=== PATIENT | female | born 1995 | race African-American/Black ===

== ENCOUNTER 2017-03-25 06:46 | Emergency (ER) | payer SELFPAY ==
[~2017-03-25] VITALS: Ht 149.9 cm; Wt 46.0 kg
[~2017-03-25 06:46] MED LIST: ACET325T14 PO; CALC500T PO; DOCU-30 PO; HYDR50CA PO; IBUP800T PO; MAGN30OR PO; MEDR150D3 IM; MOTRIN; ONDA4SOL2 PO; OXYC-302 PO; PERCOCET; PREN1TAB52 PO; ZOLP-413; ZOLP-413 PO
[2017-03-25 09:26] VITALS: BP 123/89
== END 2017-03-25 09:29 | disposition home or self-care (01) ==
LOC: ED 08:49
DX: R07.89 Other chest pain (principal); G43.909 Migraine, unspecified, not intractable, without status migrainosus

== ENCOUNTER 2017-03-31 15:26 | Inpatient (IN) | payer OTHER ==
[~2017-03-31] VITALS: Ht 152.4 cm; Wt 53.8 kg
[2017-03-31] MEDS ORDERED: SODIUM CHLORIDE FLUSH 10ML SYR IVF ONE (17:00)
[2017-03-31] MEDS ORDERED: LORazepam 2 MG/ML, 1ML IVPush ONE (17:00)
[2017-03-31] MEDS ORDERED: SODIUM CHLORIDE 0.9% 1,000ML IVBOLUS ONE ×2 (17:00→22:30)
[2017-03-31 17:33] LABS: ASPARTATE AMINO TRANSFERASE 9 U/L (15-37); BLOOD UREA NITROGEN 10 mg/dL (7-18)
[2017-03-31] MEDS ORDERED: LORazepam 2 MG/ML, 1ML ONE (17:47)
[2017-03-31] MEDS ORDERED: GADOBUTROL 7.5 MMOL/7.5 ML PFS ONE (20:30)
[2017-03-31] MEDS ORDERED: ACETAMINOPHEN 500 MG TABLET PO ONE (21:30)
[2017-03-31] MEDS ORDERED: ACETAMINOPHEN 500 MG TABLET ONE (21:32)
[2017-03-31] MEDS ORDERED: CEFTRIAXONE PMX 1GM/50ML 50 ML ONE (21:53)
[2017-03-31] MEDS ORDERED: CEFTRIAXONE 1,000 MG in SODIUM CHLORIDE 0.9% 50 ML IVPB ONE (22:00)
[2017-03-31] MEDS ORDERED: CEFTRIAXONE 1,000 MG in SODIUM CHLORIDE 0.9% 50 ML IV SCH (22:30)
[2017-03-31] MEDS ORDERED: SODIUM CHLORIDE 0.9% 1,000 ML IV ONE (22:37)
[2017-03-31] MEDS ORDERED: morphine SULFATE 10 MG/ML, 1ML IVPush PRN (23:00)
[2017-03-31] MEDS ORDERED: ONDANSETRON 2MG/ML, 2ML IVPush PRN (23:00)
[2017-03-31] MEDS ORDERED: SODIUM CHLORIDE FLUSH 10ML SYR IVF PRN (23:00)
[2017-03-31] MEDS ORDERED: LORazepam 2 MG/ML, 1ML IVPush PRN (23:00)
[2017-03-31] MEDS ORDERED: PROMETHAZINE 25 MG/ML, 1ML IM PRN (23:00)
[2017-04-01] VITALS (7 sets, daily range): BP systolic 84–111; BP diastolic 49–74
[2017-04-01] MEDS: SODIUM CHLORIDE 0.9% 1,000 ML IV SCH ×3 (00:13→12:21)
[2017-04-01] MEDS: ENOXAPARIN 40 MG/0.4 ML SQ SCH ×2 (00:13→21:58)
[2017-04-01] MEDS: HYDROcodone/APAP 5/325 TABLET PO PRN ×3 (01:13→09:23)
[2017-04-01] MEDS: NICOTINE 14MG/24 HR PATCH.TD24 TD SCH ×2 (01:14→21:57)
[2017-04-01 05:55] LABS: ASPARTATE AMINO TRANSFERASE 13 U/L (15-37); BLOOD UREA NITROGEN 8 mg/dL (7-18)
[2017-04-01 06:29] LABS: DIFF TOTAL CELLS COUNTED 100 CELL DIFF
[2017-04-01 06:32] LABS: VERIFY COUNTS? YES
[2017-04-01] MEDS: CEFTRIAXONE PMX 1GM/50ML 50 ML IV SCH ×2 (10:01→22:00)
[2017-04-01] MEDS ORDERED: FUROSEMIDE 20 MG/2 ML ONE (13:14)
[2017-04-01] MEDS: KETOROLAC 30 MG/1 ML IVPush PRN ×2 (13:34→21:12)
[2017-04-01] MEDS: ACETAMINOPHEN 325 MG TABLET PO PRN (16:27)
[2017-04-02] MEDS: SODIUM CHLORIDE 0.9% 1,000 ML IV SCH ×4 (00:53→22:41)
[2017-04-02 01:00] VITALS: BP 95/60
[2017-04-02 05:42] LABS: BLOOD UREA NITROGEN 9 mg/dL (7-18)
[2017-04-02 06:57] VITALS: BP 111/68
[2017-04-02] MEDS: ACETAMINOPHEN 325 MG TABLET PO PRN (07:13)
[2017-04-02] MEDS: CEFTRIAXONE PMX 1GM/50ML 50 ML IV SCH ×2 (10:25→22:40)
[2017-04-02 13:21] VITALS: BP 99/68
[2017-04-02] MEDS: KETOROLAC 30 MG/1 ML IVPush PRN (16:39)
[2017-04-02] MEDS ORDERED: GADOBUTROL 10 MMOL/10 ML VIAL ONE (17:26)
[2017-04-02 19:45] VITALS: BP 101/60
[2017-04-02] MEDS: HYDROcodone/APAP 5/325 TABLET PO PRN (21:43)
[2017-04-02] MEDS: NICOTINE 14MG/24 HR PATCH.TD24 TD SCH (22:40)
[2017-04-02] MEDS: ZOLPIDEM 5MG TABLET PO PRN (22:40)
[2017-04-03] MEDS: ENOXAPARIN 40 MG/0.4 ML SQ SCH
[2017-04-03 01:51] VITALS: BP 93/63
[2017-04-03] MEDS: SODIUM CHLORIDE 0.9% 1,000 ML IV SCH ×4 (05:26→22:33)
[2017-04-03] MEDS: KETOROLAC 30 MG/1 ML IVPush PRN ×2 (06:06→16:51)
[2017-04-03 07:05] VITALS: BP 109/71
[2017-04-03] MEDS: CEFTRIAXONE PMX 1GM/50ML 50 ML IV SCH ×2 (10:39→22:33)
[2017-04-03 14:02] VITALS: BP 119/82
[2017-04-03 20:20] VITALS: BP 104/76
[2017-04-03] MEDS: ZOLPIDEM 5MG TABLET PO PRN (22:33)
[2017-04-03] MEDS: HYDROcodone/APAP 5/325 TABLET PO PRN (22:33)
[2017-04-03] MEDS: NICOTINE 14MG/24 HR PATCH.TD24 TD SCH (22:33)
[2017-04-04] MEDS: ENOXAPARIN 40 MG/0.4 ML SQ SCH
[2017-04-04 01:30] VITALS: BP 117/73
[2017-04-04] MEDS: SODIUM CHLORIDE 0.9% 1,000 ML IV SCH ×4 (03:57→23:22)
[2017-04-04 07:37] VITALS: BP 139/97
[2017-04-04] MEDS: KETOROLAC 30 MG/1 ML IVPush PRN (09:39)
[2017-04-04] MEDS: CEFTRIAXONE PMX 1GM/50ML 50 ML IV SCH ×2 (09:46→23:22)
[2017-04-04] MEDS: HYDROcodone/APAP 5/325 TABLET PO PRN ×2 (13:57→22:21)
[2017-04-04 15:02] VITALS: BP 138/93
[2017-04-04 18:35] VITALS: BP 124/90
[2017-04-04] MEDS: NICOTINE 14MG/24 HR PATCH.TD24 TD SCH (23:22)
[2017-04-04] MEDS: ZOLPIDEM 5MG TABLET PO PRN (23:22)
[2017-04-05] MEDS: ENOXAPARIN 40 MG/0.4 ML SQ SCH
[2017-04-05 01:37] VITALS: BP 134/91
[2017-04-05] MEDS: SODIUM CHLORIDE 0.9% 1,000 ML IV SCH ×2 (05:00→09:25)
[2017-04-05 08:27] VITALS: BP 109/72
[2017-04-05] MEDS: HYDROcodone/APAP 5/325 TABLET PO PRN ×2 (09:21→22:42)
[2017-04-05] MEDS: CEFTRIAXONE PMX 1GM/50ML 50 ML IV SCH ×2 (11:30→22:43)
[2017-04-05 14:00] VITALS: BP 121/75
[2017-04-05] MEDS: LACTOBACILLUS CHEW TABLET PO SCH ×2 (17:39→20:22)
[2017-04-05 18:34] VITALS: BP 123/78
[2017-04-05] MEDS: ZOLPIDEM 5MG TABLET PO PRN (22:43)
[2017-04-05] MEDS: NICOTINE 14MG/24 HR PATCH.TD24 TD SCH (22:44)
[2017-04-06] MEDS: ENOXAPARIN 40 MG/0.4 ML SQ SCH (00:25)
[2017-04-06 01:18] VITALS: BP 123/82
[2017-04-06 06:02] LABS: ASPARTATE AMINO TRANSFERASE 34 U/L (15-37); BLOOD UREA NITROGEN 9 mg/dL (7-18)
[2017-04-06 06:30] LABS: DIFF TOTAL CELLS COUNTED 100 CELL DIFF
[2017-04-06 06:45] LABS: VERIFY COUNTS? YES
[2017-04-06 07:05] VITALS: BP 136/95
[2017-04-06] MEDS: CEFTRIAXONE PMX 1GM/50ML 50 ML IV SCH (09:45)
[2017-04-06] MEDS: LACTOBACILLUS CHEW TABLET PO SCH (09:45)
[2017-04-06 13:27] VITALS: BP 128/85
[2017-04-06] MEDS ORDERED: SULF1TAB24 PO (14:56)
[2017-04-06] MEDS ORDERED: ACID1TAB7 PO (14:56)
== END 2017-04-06 16:50 | disposition home or self-care (01) | DRG 871 ==
LOC: ED 16:32 → SUATTDRO 22:29 → EDIP 22:37 → 4WST 04-01 00:01
PROVIDERS: ADMIT Internal Medicine; ATTEND Internal Medicine
DX: A41.9 Sepsis, unspecified organism (principal); E43 Unspecified severe protein-calorie malnutrition; N10 Acute pyelonephritis; N13.30 Unspecified hydronephrosis; D75.89 Other specified diseases of blood and blood-forming organs; F15.10 Other stimulant abuse, uncomplicated; G43.909 Migraine, unspecified, not intractable, without status migrainosus; F17.210 Nicotine dependence, cigarettes, uncomplicated; Q63.2 Ectopic kidney; Z80.8 Family history of malignant neoplasm of other organs or systems; Z83.3 Family history of diabetes mellitus; Z86.59 Personal history of other mental and behavioral disorders; Z82.69 Family history of other diseases of the musculoskeletal system and connective tissue; Z90.49 Acquired absence of other specified parts of digestive tract; B96.20 Unspecified Escherichia coli [E. coli] as the cause of diseases classified elsewhere; Z68.23 Body mass index [BMI] 23.0-23.9, adult
CPT/HCPCS: 36415; 72157; 72158; 74176; 76700; 78708; 80048; 80053; 81001; 83605; 83690; 84703; 85025; 85651; 87040; 87077; 87086; 87186; 93005; 96361; 96374; A9585; J0696; J1650; J1885; J2405; A9562; C8902; C9898; J1940; J2060; J7030

== ENCOUNTER 2017-10-01 00:42 | Inpatient (IN) | payer MEDICAID, OTHER ==
[~2017-10-01] VITALS: Ht 152.4 cm; Wt 55.0 kg
[~2017-10-01 00:42] MED LIST changes: +ACID1TAB7 PO; +DOCU-131 PO; -DOCU-30 PO; +IBUP-1223 PO; -IBUP800T PO; +SULF1TAB24 PO
[2017-10-01] MEDS ORDERED: morphine SULFATE 10 MG/ML, 1ML ONE (01:29)
[2017-10-01] MEDS ORDERED: ONDANSETRON 2MG/ML, 2ML ONE ×2 (01:29→02:49)
[2017-10-01] MEDS ORDERED: MORPHINE SULFATE 4 MG/ML, 1ML IVPush PRN (01:30)
[2017-10-01] MEDS ORDERED: ONDANSETRON 2MG/ML, 2ML IVPush ONE ×2 (01:30→03:00)
[2017-10-01] MEDS ORDERED: SODIUM CHLORIDE 0.9% 1,000ML IVBOLUS ONE ×2 (01:30→05:00)
[2017-10-01 01:40] LABS: HEMATOCRIT 34.6 % (34.6-47.8); HEMOGLOBIN 11.4 g/dL (11.7-16.4); WHITE BLOOD COUNT 13.2 x10^3/uL (3.4-10)
[2017-10-01 01:51] LABS: ASPARTATE AMINO TRANSFERASE 13 U/L (15-37); BLOOD UREA NITROGEN 11 mg/dL (7-18)
[2017-10-01] MEDS ORDERED: PROMETHAZINE 25 MG/ML, 1ML ONE (03:53)
[2017-10-01] MEDS ORDERED: DIPHENHYDRAMINE 50 MG/ML, 1ML ONE (03:53)
[2017-10-01] MEDS ORDERED: PROMETHAZINE 25 MG/ML, 1ML IM ONE (04:00)
[2017-10-01] MEDS ORDERED: DIPHENHYDRAMINE 50 MG/ML, 1ML IVPush ONE (04:00)
[2017-10-01] MEDS ORDERED: OMNIPAQUE 350 MG/ML, 100ML BOTTLE ONE (04:16)
[2017-10-01] MEDS ORDERED: METRONIDAZOLE PMX 500MG/100ML 100 ML ONE (04:50)
[2017-10-01] MEDS ORDERED: CIPROFLOXACIN/PMX 400MG/200ML 200 ML ONE (04:56)
[2017-10-01] MEDS ORDERED: CIPROFLOXACIN/PMX 400MG/200ML 200 ML IV ONE (05:00)
[2017-10-01] MEDS ORDERED: METRONIDAZOLE PMX 500MG/100ML 100 ML IV ONE (05:00)
[2017-10-01] MEDS ORDERED: ONDANSETRON 2MG/ML, 2ML IVPush PRN (05:30)
[2017-10-01] MEDS ORDERED: LORazepam 2 MG/ML, 1ML IVPush PRN (05:30)
[2017-10-01] MEDS ORDERED: METRONIDAZOLE PMX 500MG/100ML 100 ML IV SCH (05:30)
[2017-10-01] MEDS ORDERED: PROMETHAZINE 25 MG/ML, 1ML IM PRN (05:30)
[2017-10-01] MEDS: HYDROmorphone 2 MG/ML, 1ML IVPush PRN (08:27)
[2017-10-01] MEDS: CEFTRIAXONE PMX 1GM/50ML 50 ML IV SCH (08:28)
[2017-10-01] MEDS: LACTATED RINGERS 1,000 ML IV SCH ×2 (10:24→18:39)
[2017-10-01 10:57] LABS: DAU SCREEN DISCLAIMER
[2017-10-01] MEDS: METRONIDAZOLE PMX 500MG/100ML 100 ML IV SCH ×2 (13:47→21:23)
[2017-10-01 20:18] VITALS: BP 99/68
[2017-10-02 02:33] VITALS: BP 105/69
[2017-10-02] MEDS: LACTATED RINGERS 1,000 ML IV SCH ×4 (02:48→18:16)
[2017-10-02 04:33] LABS: HEMATOCRIT 28.8 % (34.6-47.8); HEMOGLOBIN 9.4 g/dL (11.7-16.4); WHITE BLOOD COUNT 9.6 x10^3/uL (3.4-10)
[2017-10-02 04:38] LABS: ASPARTATE AMINO TRANSFERASE 11 U/L (15-37); BLOOD UREA NITROGEN 7 mg/dL (7-18)
[2017-10-02] MEDS: METRONIDAZOLE PMX 500MG/100ML 100 ML IV SCH ×3 (05:21→21:58)
[2017-10-02] MEDS ORDERED: MAGNESIUM SULFATE PMX 4GM/100M 100 ML IV ONE (06:30)
[2017-10-02 06:34] VITALS: BP 94/59
[2017-10-02] MEDS ORDERED: ACETAMINOPHEN 325 MG TABLET PO PRN (07:00)
[2017-10-02] MEDS: CEFTRIAXONE PMX 1GM/50ML 50 ML IV SCH (11:42)
[2017-10-02 13:31] VITALS: BP 124/86
[2017-10-02 20:55] VITALS: BP 109/73
[2017-10-02] MEDS: HYDROmorphone 2 MG/ML, 1ML IVPush PRN (21:58)
[2017-10-03 01:28] VITALS: BP 110/77
[2017-10-03] MEDS: LACTATED RINGERS 1,000 ML IV SCH ×3 (02:16→19:42)
[2017-10-03] MEDS: METRONIDAZOLE PMX 500MG/100ML 100 ML IV SCH ×3 (05:37→21:22)
[2017-10-03 06:45] VITALS: BP 109/73
[2017-10-03] MEDS: CEFTRIAXONE PMX 1GM/50ML 50 ML IV SCH (08:01)
[2017-10-03] MEDS: HYDROmorphone 2 MG/ML, 1ML IVPush PRN ×2 (08:09→19:41)
[2017-10-03 13:18] VITALS: BP 110/71
[2017-10-03 19:23] VITALS: BP 108/72
[2017-10-04 03:24] VITALS: BP 103/68
[2017-10-04 05:45] LABS: HEMATOCRIT 30.9 % (34.6-47.8); HEMOGLOBIN 10.1 g/dL (11.7-16.4); WHITE BLOOD COUNT 7.9 x10^3/uL (3.4-10)
[2017-10-04 05:48] LABS: ASPARTATE AMINO TRANSFERASE 16 U/L (15-37); BLOOD UREA NITROGEN 3 mg/dL (7-18)
[2017-10-04] MEDS: METRONIDAZOLE PMX 500MG/100ML 100 ML IV SCH ×3 (05:51→22:03)
[2017-10-04] MEDS: LACTATED RINGERS 1,000 ML IV SCH ×2 (08:31→17:14)
[2017-10-04] MEDS: CEFTRIAXONE PMX 1GM/50ML 50 ML IV SCH (08:31)
[2017-10-04] MEDS: HYDROmorphone 2 MG/ML, 1ML IVPush PRN ×2 (08:37→22:03)
[2017-10-04 10:00] VITALS: BP 100/63
[2017-10-04 16:22] VITALS: BP 114/78
[2017-10-04 19:01] VITALS: BP 117/78
[2017-10-05 00:45] VITALS: BP 109/73
[2017-10-05] MEDS: LACTATED RINGERS 1,000 ML IV SCH (01:44)
[2017-10-05] MEDS: METRONIDAZOLE PMX 500MG/100ML 100 ML IV SCH (05:37)
[2017-10-05 05:41] LABS: HEMOGLOBIN 10.9 g/dL (11.7-16.4); WHITE BLOOD COUNT 10.1 x10^3/uL (3.4-10)
[2017-10-05 06:20] LABS: ASPARTATE AMINO TRANSFERASE 22 U/L (15-37); BLOOD UREA NITROGEN 10 mg/dL (7-18)
[2017-10-05 06:44] VITALS: BP 113/68
[2017-10-05] MEDS: CEFTRIAXONE PMX 1GM/50ML 50 ML IV SCH (08:36)
[2017-10-05] MEDS ORDERED: METR500T8 PO (11:34)
[2017-10-05 12:19] VITALS: BP 114/78
== END 2017-10-05 14:25 | disposition home or self-care (01) | DRG 689 ==
LOC: ED 03:13 → EDIP 05:07 → SUATTDRO 05:13 → 3NW 06:57 → 3NE 10-04 19:28
PROVIDERS: ADMIT Hospitalist; ATTEND Hospitalist
PROC: 0T9B70Z Drainage of Bladder with Drainage Device, Via Natural or Artificial Opening (ICD-10-PCS; principal; 2017-10-01)
DX: N39.0 Urinary tract infection, site not specified (principal); E43 Unspecified severe protein-calorie malnutrition; K56.609 Unspecified intestinal obstruction, unspecified as to partial versus complete obstruction; F17.210 Nicotine dependence, cigarettes, uncomplicated; B96.20 Unspecified Escherichia coli [E. coli] as the cause of diseases classified elsewhere; E86.0 Dehydration; G43.909 Migraine, unspecified, not intractable, without status migrainosus; Z86.59 Personal history of other mental and behavioral disorders; Z79.899 Other long term (current) drug therapy; Z68.23 Body mass index [BMI] 23.0-23.9, adult; Z91.041 Radiographic dye allergy status
CPT/HCPCS: 36415; 71010; 74000; 74176; 74177; 76700; 80053; 80307; 81001; 83690; 83735; 84100; 84702; 85025; 87046; 87077; 87086; 87186; 87324; 87328; 87329; 87899; 89055; 96365; 96372; 96375; 96376; J0696; J0744; J1170; J2405; J2550; Q9967; G0479; J1200; J3475; J7030; J7120

== ENCOUNTER 2018-09-09 00:55 | Emergency (ER) | payer MEDICAID ==
[~2018-09-09] VITALS: Ht 149.9 cm; Wt 54.7 kg
[~2018-09-09 00:55] MED LIST changes: +METR500T8 PO
[2018-09-09 01:03] VITALS: BP 135/94
[2018-09-09] MEDS ORDERED: AZITHROMYCIN 250 MG TABLET ONE (01:24)
[2018-09-09] MEDS ORDERED: CEFTRIAXONE 250 MG ONE (01:24)
[2018-09-09] MEDS ORDERED: CEFTRIAXONE 250 MG IM ONE (01:30)
[2018-09-09] MEDS ORDERED: AZITHROMYCIN 250 MG TABLET PO ONE (01:30)
[2018-09-09 01:43] LABS: CLUE CELLS NONE SEEN (NONE SEEN)
[2018-09-09 01:44] LABS: WET PREP WBCS FEW (FEW)
[2018-09-09 01:45] LABS: HCG UR SG 1.019 (1.003-1.030); MICROSCOPIC AUTO
[2018-09-09 01:46] LABS: CULTURE INDICATED? YES
== END 2018-09-09 02:25 | disposition home or self-care (01) ==
LOC: ED 01:25
DX: A64 Unspecified sexually transmitted disease (principal); N76.0 Acute vaginitis; G43.909 Migraine, unspecified, not intractable, without status migrainosus; F17.200 Nicotine dependence, unspecified, uncomplicated; Z90.89 Acquired absence of other organs; Z72.9 Problem related to lifestyle, unspecified; Z87.448 Personal history of other diseases of urinary system; Z86.59 Personal history of other mental and behavioral disorders
CPT/HCPCS: 81001; 81025; 87086; 87210; 87491; 87591; 87808; 96372; 99283; J0696

== ENCOUNTER 2019-10-10 10:13 | Emergency (ER) | payer MEDICAID ==
[~2019-10-10] VITALS: Ht 149.9 cm; Wt 52.8 kg
[~2019-10-10 10:13] MED LIST changes: -CALC500T PO; +CALC500T29 PO; +METR-90 PO; -METR500T8 PO
[2019-10-10 10:19] VITALS: BP 117/69
[2019-10-10] MEDS ORDERED: DEXAMETHASONE 4 MG TABLET ONE (10:51)
[2019-10-10] MEDS ORDERED: DEXAMETHASONE 4 MG TABLET PO ONE (11:00)
== END 2019-10-10 11:56 | disposition home or self-care (01) ==
LOC: ED 11:52
DX: J18.9 Pneumonia, unspecified organism (principal); F17.200 Nicotine dependence, unspecified, uncomplicated; G43.909 Migraine, unspecified, not intractable, without status migrainosus
CPT/HCPCS: 71046; 99283